=== PATIENT | male | born 1985 | race Caucasian/White ===

== ENCOUNTER 2016-10-31 08:41 | Emergency (ER) | payer SELFPAY ==
[~2016-10-31] VITALS: Ht 165.1 cm; Wt 75.0 kg
[2016-10-31 10:49] VITALS: BP 136/89
== END 2016-10-31 11:20 | disposition home or self-care (01) ==
LOC: EMS 08:45
DX: N43.3 Hydrocele, unspecified (principal)
CPT/HCPCS: 76870; 99284